=== PATIENT | female | born 1985 | race Caucasian/White ===

== ENCOUNTER 2017-09-12 14:22 | Emergency (ER) | payer BC, MEDICAID ==
[~2017-09-12] VITALS: Ht 162.6 cm; Wt 45.4 kg
[2017-09-12 14:35] VITALS: BP 121/69
--- NOTE | 2017-09-12 15:08 | Emergency Room Report ---
History of Present Illness General Chief Complaint: Alcohol Intoxication Source: Patient Present Illness HPI Patient is a 32-year-old female with a history of alcohol abuse who presents today for alcohol intoxication. The patient is currently in a rehabilitation facility for alcohol abuse. She admitted to drinking alcohol this morning and caregiver gave her breathalyzer which was found to be positive. The patient admits to drinking "a little". The patient was initially ambulatory in the ED. Denies any nausea, vomiting, suicidal or homicidal ideation. Allergies: Coded Allergies: No Known Allergies (Unverified , 09/12/17) Patient History Social History: Reports: alcohol use Reviewed Nursing Documentation: PMH: Agreed, PSxH: Agreed Nursing Documentation-PMH Past Medical History: No Stated History Review of Systems Psychiatric: Reports: other - alcohol intoxication Physical Exam Vital Signs Date Time Temp Pulse Resp B/P (MAP) Pulse Ox O2 Delivery O2 Flow Rate FiO2 09/12/17 14:28 98.2 99 15 121/69 99 Room Air Sp02 EP Interpretation: reviewed, normal General Appearance: no apparent distress, alert, GCS 15, non-toxic, other - Appears somnolent Head: normocephalic, atraumatic Eyes: bilateral eye normal inspection, bilateral eye PERRL ENT: hearing grossly normal, normal pharynx, no angioedema, normal voice Neck: full range of motion, supple/symm/no masses Respiratory: chest non-tender, lungs clear, normal breath sounds, speaking full sentences Cardiovascular #1: regular rate, rhythm, no edema Cardiovascular #2: 2+ carotid (R), 2+ carotid (L), 2+ radial (R), 2+ radial (L) , 2+ dorsalis pedis (R), 2+ dorsalis pedis (L) Gastrointestinal: normal bowel sounds, non tender, soft, non-distended, no guarding, no rebound Rectal: deferred Genitourinary: normal inspection, no CVA tenderness Musculoskeletal: back normal, gait/station normal, normal range of motion, non- tender, calf tenderness Neurologic: alert, oriented x3, responsive, motor strength/tone normal, sensory intact, speech normal Psychiatric: judgement/insight normal, memory normal, mood/affect normal, no suicidal/homicidal ideation Reflexes: 3+ bicep (R), 3+ bicep (L), 3+ tricep (R), 3+ tricep (L), 3+ knee (R) , 3+ knee (L) Skin: normal color, no rash, warm/dry, well hydrated Lymphatic: no adenopathy Medical Decision Making PA Attestation supervising physician is Dr. Amato Diagnostic Impression: Primary Impression: Acute alcoholic intoxication Additional Impression: History of alcohol abuse ER Course Patient is brought to the ED for alcohol intoxication. Patient reports she drank a few small bottles of liquor this morning. She was given a breathalyzer prior to arrival which was noted to be positive. Patient is given IV fluids, multiple re\\re evaluations made. At reevaluation at 167, the patient is ambulatory in the ED conversive in stating she's feeling much better. The abdomen is soft and nontender throughout. No need for labs or imaging at this time. No need for psychiatric evaluation as patient adamantly denies suicidal and homicidal ideation. Patient is ambulatory without difficulty and is discharged to home. Reevaluation Time: 16:36 Last Vital Signs Date Time Temp Pulse Resp B/P (MAP) Pulse Ox O2 Delivery O2 Flow Rate FiO2 09/12/17 14:28 98.2 99 15 121/69 99 Room Air Status: improved Disposition: HOME, SELF-CARE Condition: Stable Patient Instructions: Alcohol Abuse and Nutrition, Alcohol Intoxication Fany James Sep 12, 2017 15:08
[2017-09-12 16:30] VITALS: BP 119/59
[2017-09-12 17:00] VITALS: BP 119/59
== END 2017-09-12 17:00 | disposition home or self-care (01) ==
LOC: EMR 15:00
DX: F10.129 Alcohol abuse with intoxication, unspecified (principal)
CPT/HCPCS: 96374; 99284